=== PATIENT | male | born 1995 | race Caucasian/White ===

== ENCOUNTER 2017-09-21 06:00 | Emergency (ER) | payer BC ==
[~2017-09-21] VITALS: Ht 182.8 cm; Wt 79.8 kg
--- NOTE | ~2017-09-21 | EKG ---
[place], [place] ELECTROCARDIOGRAM REPORT NAME: DEIDRE COSTA UNIT #: [id number] ROOM: DOCTOR: SHEILA DRAFT REPORT BIRTHDATE: [birth year] [facility] Test Date: 2017-09-21 Test Time: 06:28:17 Pat Name: DEIDRE COSTA Department: Room: Gender: Grinder Set Up Operator Thread: : 1995 Requested By: SELENE WAGONER Order Number: [id number] Reading MD: Andrew Garzon MD Measurements Intervals [place] Rate: 121 P: 77 NC: 148 QRS: 38 QRSD: 105 T: -46 QT: 335 QTc: 476 Interpretive Statements Sinus tachycardia Consider right atrial enlargement Borderline T abnormalities, inferior leads Borderline prolonged QT interval Electronically Signed On 09-23-2017 7:40:38 PDT by Andrew Garzon MD CM:EKGRPT:ELECTROCARDIOGRAM REPORT [id number] SELENE HARTMAN DRAFT REPORT SELENE WAGONER DO
[2017-09-21 06:36] LABS: HEMATOCRIT 46.6 % (42.0-52.0); HEMOGLOBIN 17.2 g/dl (14.0-18.0); MEAN CELL VOLUME 82.9 fl (80.0-94.0); MEAN CORPUSCULAR HGB 30.6 pg (27.0-31.0); MEAN CORPUSCULAR HGB CONC 36.9 g/dl (33.0-37.0); MEAN PLATELET VOLUME 9.7 fl (9.6-12.3); PLATELET COUNT AUTOMATED 255 10*3/uL (130-400); RED BLOOD COUNT 5.62 10*6/uL (4.50-5.90); RED CELL DISTRI WIDTH 11.9 % (0-14.5); WHITE BLOOD COUNT 12.9 10*3/uL (4.8-10.8)
[2017-09-21 06:37] LABS: ALBUMIN 4.7 gm/dl (3.1-4.5); ALKALINE PHOSPHATASE 79 U/L (45-117); BUN 18 mg/dl (7-24); CHLORIDE 107 mmol/L (98-107); CREATININE 1.34 mg/dL (0.70-1.30); POTASSIUM 3.3 mmol/L (3.5-5.1); SGOT/AST 12 IU/L (3-35); SGPT/ALT 17 U/L (12-78); SODIUM 138 mmol/L (136-145); TOTAL PROTEIN 8.9 gm/dL (6.4-8.2)
[2017-09-21 06:38] LABS: TROPONIN I < 0.015 ng/ml (<0.045)
[2017-09-21 06:41] LABS: PLATELET SUFFICIENCY NORMAL (NORMAL); SPHEROCYTES FEW; TOTAL CELLS COUNTED 100 #CELLS
[2017-09-21 06:52] LABS: BILIRUBIN 1+ (NEGATIVE); BLOOD NEGATIVE (NEGATIVE); CLARITY SL CLOUDY (CLEAR); COLOR YELLOW (YELLOW); GLUCOSE NEGATIVE (NEGATIVE); KETONE 1+ (NEGATIVE); LEUKO ESTERASE NEGATIVE (NEGATIVE); NITRITE NEGATIVE (NEGATIVE); SPECIFIC GRAVITY 1.015 (1.005-1.030); UROBILINOGEN >= 8.0 E.U./dl (0.2-1.0)
[2017-09-21 07:02] LABS: URINE AMPHETAMINES > 1000 (1000ng/ml); URINE BARBITURATES < 200 (200ng/ml); URINE BENZODIAZEPINES < 200 (200ng/ml); URINE CANNABINOIDS (THC) > 50 (50ng/ml); URINE COCAINE < 300 (300ng/ml); URINE METHADONE < 300 (300ng/ml); URINE OPIATES < 300 (300ng/ml)
[2017-09-21 07:04] LABS: BACTERIA 1+; MUCOUS 2+; WBC 16-20 wbc/hpf (0-5)
[2017-09-21 07:06] LABS: URINE PHENCYCLIDINE < 25 (25ng/ml)
== END 2017-09-21 07:05 | disposition left against medical advice (07) ==
LOC: ED 06:00
PROVIDERS: Student in an Organized Health Care Education/Training Program
DX: R07.89 Other chest pain (principal); T50.991A Poisoning by other drugs, medicaments and biological substances, accidental (unintentional), initial encounter; R94.31 Abnormal electrocardiogram [ECG] [EKG]; Y92.9 Unspecified place or not applicable